=== PATIENT | male | born 1995 | race Caucasian/White ===

== ENCOUNTER 2016-09-28 19:49 | Emergency (ER) | payer SELFPAY ==
--- NOTE | ~2016-09-28 | ER ---
PATIENT'S NAME: SUHA GAMBLE [facility] AGE: 21 Y [address] ROOM: [place] [address] LOCATION: [facility] ADMIT DATE: 09/28/2016 ER/Outpatient Report DISCHARGE DATE: 09/29/2016 FAMILY PHYSICIAN: PHYSICIAN, JORGE ATTENDING PHYSICIAN: Juan Carlos Mercer Admission date and time documented in the medical record. I saw the patient at 2010 hours. CHIEF COMPLAINT: Right-sided abdomen, chest pain. HISTORY OF PRESENT ILLNESS: The patient is a 21-year-old male, who has had several days' worth of right- sided abdominal pain, in the right abdomen, right chest, sometimes he has some pain in his legs with some numbness. He had 2 diarrhea stools today. He has had some question problems urinating, has had some nausea, but no vomiting. Pain is severe at times, doubling him over. Does have some lightheadedness, dizziness at times, and because of the pain is so severe at times, he gets really kind of confused. Denies any high-grade fever, just low-grade fever around 99 to 100. No headache, eyes, ears, nose, throat, neck, or spine pain. Does have a history of gastric, duodenal ulcers. No neuro changes, psych issues, or endocrine problems. No joint or muscle swelling, redness, or pain. No skin eruptions or rash. HOME MEDICATIONS: None. ALLERGIES: NONE. SOCIAL HISTORY: Nonsmoker. Does use marijuana. He has taken some Vyvanse 40 mg on Monday. REVIEW OF SYSTEMS: All systems reviewed by me are negative with the exception of those discussed in the history of present illness. PHYSICAL EXAMINATION: VITAL SIGNS: Temperature 99.3 tympanic, pulse 114, respirations 18, blood pressure 165/89, O2 saturation on room air is 98%. HEAD: Normocephalic. EYES, EARS, NOSE, THROAT: Clear. Mucous membranes moist. NECK: Negative. SPINE: Negative. LUNGS: Clear. No rales, rhonchi, or wheezes. PATIENT'S NAME: SUHA GAMBLE [facility] AGE: 21 Y [address] ROOM: [place] [address] LOCATION: [facility] ADMIT DATE: 09/28/2016 ER/Outpatient Report DISCHARGE DATE: 09/29/2016 FAMILY PHYSICIAN: PHYSICIAN, NO ATTENDING PHYSICIAN: Juan Carlos Mercer HEART: Regular. Pulses are palpable. The patient is little bit tachypneic and is tachycardic. ABDOMEN: Soft. Some tenderness in the right upper quadrant, right flank area to palpation, during the emergency room course moved into the epigastric area. No distention. No surgical abdomen. Fair bowel tones. No organomegaly or abnormal mass palpable. No CVA tenderness. EXTREMITIES: Intact. NEUROVASCULAR: Intact. SKIN: Clear. No skin eruptions or rash. LABORATORY DATA AND X-RAYS: H. pylori was negative. CMS was normal except an elevated glucose 105, low alkaline phosphatase of 31, medical blood alcohol was less than 0.01. Amylase and lipase were normal. CPK was normal at 244. Iyjas-il-[id number] cardiac enzymes were normal. Serum acetaminophen and salicylate levels were normal. CRP was less than 0.29. TSH was 1.69. Procalcitonin was less than 0.05. Lactate was 1.2. Urine drug screen was positive for amphetamines and THC. White count was 9100, 71 segs, 20 lymphs, 7 monos, 1 eosinophil, hemoglobin was 16 with hematocrit 44.7, platelet count is 226,000. Sedimentation rate was 3. Pro- time was 11.5 with an INR 1.1. EMERGENCY DEPARTMENT COURSE: Did give the patient IV normal saline fluids, morphine for pain, Dilaudid for pain, Zofran for nausea, Protonix 40 mg IV. IMPRESSION: Abdominal pain, right-sided epigastric, etiology uncertain. CT scan was normal as well as all of his labs. Does have a history of peptic ulcer disease. It may be a flare-up of his ulcer disease. He does not have any perforated ulcer at this time. He has had no gastrointestinal bleed. PLAN: The patient was dismissed home. [place] BRAT diet. Avoid caffeine, nicotine, alcohol, spicy, greasy, fried foods. [place] 10/325 as needed for pain, #16; Zofran 4 mg as needed for nausea, vomiting, #16; may use [id number] Maalox, Gaviscon, Mylanta, and antacids. He may need upper endoscopy of his stomach. Follow up with personal physician in 4 to 5 days. May need to have upper endoscopy. Discussion ensued with the patient concerning my findings and recommendations, he understands. JUAN CARLOS MERCER MD PATIENT'S NAME: SUHA GAMBLE [facility] AGE: 21 Y [address] ROOM: [place] [address] LOCATION: [facility] ADMIT DATE: 09/28/2016 ER/Outpatient Report DISCHARGE DATE: 09/29/2016 FAMILY PHYSICIAN: JORGE OROZCO ATTENDING PHYSICIAN: Juan Carlos Mercer/modl /[id number] d: 09/29/[id number] t: 10/05/16 0613, OUTPATIENT REPORT
[2016-09-28 21:00] LABS: BASOPHIL % 0.4 %; EOSINOPHIL # 0.1 K/uL (0.0-0.5); EOSINOPHIL % 1.2 %; HEMATOCRIT 44.7 % (37.0-53.0); IMMATURE GRANULOCYTE % 0.2 %; LYMPHOCYTE # 1.8 K/uL (0.8-4.0); LYMPHOCYTE % 19.8 %; MCH 31.2 pg (27.0-34.0); MCHC 35.8 gm/dL (32.0-36.5); MCV 87.1 fl (83.0-98.0); MONOCYTE # 0.7 K/uL (0.0-1.0); MONOCYTE % 7.2 %; MPV 9.5 fl (9.4-12.4); NEUTROPHIL # (ANC) 6.5 K/uL (1.4-9.0); NEUTROPHIL % 71.2 %; NRBC % 0 /100WBC (0-0.00); PLATELET COUNT 226 K/uL (150-450); RBC 5.13 M/uL (4.00-6.00); RDW-CV 12.1 % (11.9-14.6); WBC 9.1 K/uL (4.0-11.0)
[2016-09-28 21:11] LABS: INR - (THERAPEUTIC) 1.1 (0.9-1.1); PROTIME 11.5 SECONDS (9.6-11.1)
[2016-09-28 21:13] LABS: BARBITURATE NEGATIVE (NEGATIVE); COCAINE NEGATIVE (NEGATIVE); OPIATES NEGATIVE (NEGATIVE)
[2016-09-28 21:16] LABS: AMPHETAMINE POSITIVE (NEGATIVE)
[2016-09-28 21:40] LABS: ALK PHOS 31 IU/L (33-138); ALT 20 IU/L (12-78); ANION GAP 12.7 (10.0-19.0); AST 21 IU/L (10-40); BLOOD UREA NITROGEN 13 mg/dL (6-24); CALCIUM 9.7 mg/dL (8.5-10.5); CHLORIDE 106 mMol/L (96-110); CO2 26 mMol/L (22-32); CPK 244 IU/L (35-332); ESTIMATED GFR (MDRD EQUATION) > 60; POTASSIUM 3.7 mMol/L (3.7-5.1); SODIUM 141 mMol/L (135-145); TOTAL BILIRUBIN 1.5 mg/dL (0.0-1.5)
== END 2016-09-29 01:07 | disposition disaster alternative care site (69) ==
LOC: GMED 19:49
PROVIDERS: Emergency Medicine
DX: R10.13 Epigastric pain (principal); Z87.11 Personal history of peptic ulcer disease
CPT/HCPCS: C9113; G0480; J1170; J2270; J2405; J7030; Q9967